=== PATIENT | female | born 1945 | race Caucasian/White ===

== ENCOUNTER → 2020-05-06 | Outpatient (CLI) | payer MEDICARE | END | disposition home or self-care (01) | LOC: OIH 12:56 | PROVIDERS: ATTEND Internal Medicine | DX: M84.48XA Pathological fracture, other site, initial encounter for fracture (principal); M47.896 Other spondylosis, lumbar region; M54.9 Dorsalgia, unspecified; M54.30 Sciatica, unspecified side; G95.89 Other specified diseases of spinal cord | CPT/HCPCS: 72100; 72220 ==

== ENCOUNTER → 2025-02-04 | Outpatient (CLI) | payer MEDICARE ==
--- NOTE | 2025-02-04 14:52 | HMCIMG ---
Exam Type: US PELVIC NON-OB COMP Clinical Information: LLQ PAIN Comparison: None Findings: The examination shows an anteverted uterus which is normal in size and echogenicity. It measures 6.4 x 1.9 x 3.6 cm. The endometrial lining is normal in thickness. It measures 3 mm. No intrauterine or ectopic seen. The ovaries are normal in size and echogenicity. The right ovary measures 1.6 x 0.7 x 1.4 cm. The left ovary measures 1.4 x 0.8 x 0.9 cm. Vascular Doppler flow exam and spectral analysis of waveforms analysis is unremarkable bilaterally. There is preserved vascularity to both ovaries on Doppler evaluation. Specifically, there is no evidence of ovarian torsion. No free fluid is noted throughout the cul-de-sac. There are no adnexal abnormalities. No other significant abnormalities are seen. No fluid collections or masses or free fluid are identified in the pelvis. Impression: NORMAL EXAM. No evidence of uterine pathology. No evidence of adnexal abnormalities or ovarian torsion. No intrauterine or ectopic seen.
== END | disposition home or self-care (01) ==
LOC: RAH 13:53
PROVIDERS: ATTEND Obstetrics & Gynecology
DX: R10.32 Left lower quadrant pain (principal)
CPT/HCPCS: 76856